=== PATIENT | female | born 1960 | race Caucasian/White ===

== ENCOUNTER 2017-12-16 13:35 | Emergency (ER) | payer OTHER ==
[~2017-12-16] VITALS: Ht 175.3 cm; Wt 108.9 kg
[~2017-12-16 13:35] MED LIST: CYCLOBENZAPRINE5 M2 PO; PERCOCET 5-3251 EACH PO
--- NOTE | 2017-12-16 14:25 | ED GENERAL ADULT ---
History of Present Illness General Chief Complaint: General Adult Stated Complaint: SENT BY URGENT CARE FOR PNEUMONIA/HIGH BLOOD PRESS Source: patient Exam Limitations: no limitations Vital Signs & Intake/Output Vital Signs & Intake/Output Vital Signs Date Time Temp Pulse Resp B/P B/P Pulse O2 O2 Flow FiO2 Mean Ox Delivery Rate 12/16 1758 98.3 12/16 1730 98.3 75 18 173/85 97 Room Air 12/16 1431 98 Room Air 12/16 1413 88 18 168/100 98 Room Air 12/16 1344 98.1 97 18 190/89 97 Room Air ED Intake and Output 12/17 0000 12/16 1200 Intake Total Output Total Balance Patient 240 lb Weight Weight Reported by Patient Measurement Method Allergies Coded Allergies: No Known Allergies (08/12/16) Reconcile Medications Amoxicillin 875 MG TABLET 1 TAB PO BID PNA Cyclobenzaprine HCl 5 MG TABLET 1 TAB PO TIDPRN PRN PAIN Oxycodone HCl/Acetaminophen (Percocet 5-325 MG Tablet) 5 MG-325 MG TABLET 1 TAB PO TID PRN PAIN Triage Note: PT WAS EVALUATED AT A CLINIC IN [place] AND SHE WAS TOLD TO HAVE PNEUMONIA. SHE REPORTS LEFT FLANK PAIN WITH NO UROLOGICAL SYMPTOMS. Triage Nurses Notes Reviewed? yes Onset: Gradual Duration: week(s): (1), changing over time, continues in ED Timing: single episode today Injury Environment: home Severity: mild, moderate Severity Numbers: 7 No Modifying Factors: none Associated Symptoms: cough LMP (ages 10-50): unknown : No Patient currently breastfeeds: No HPI: 57-year-old female past medical history of hypertension and diabetes evaluation of elevated blood pressure of pneumonia. Patient states that for the past 1-2 weeks that a gradually worsening cough. The cough is productive of yellow sputum she has had some subjective fevers and some left-sided rib tenderness. The tenderness is only present with coughing. She denies shortness of breath dizziness lightheadedness hemoptysis or lower extremity edema. No history of underlying lung disease such as asthma or COPD she does not smoke. No nausea vomiting or diarrhea. She went to an urgent care today where she was diagnosed with a left lower lobe pneumonia started on Zithromax and was sent to the ER for further evaluation. She states that she was sent in because her blood pressure was elevated. She takes valsartan 320 mg and she has been compliant. Last dose was today. No headaches changes in vision no blood thinners. She states her blood pressures usually controlled. Past History Travel History Traveled to [place] past 21 day No Medical History Any Pertinent Medical History? see below for history Cardiovascular: hypertension Endocrine: diabetes Surgical History Surgical History: none Psychosocial History What is your primary language Eritrean Tobacco Use: Never used Family History Hx Contributory? No Review of Systems Review of Systems Constitutional: Reports: chills, diaphoresis. EENTM: Reports: nasal congestion. Respiratory: Reports: see HPI, cough, sputum production. Cardiovascular: Reports: no symptoms. GI: Reports: no symptoms. Genitourinary: Reports: no symptoms. Musculoskeletal: Reports: no symptoms. Skin: Reports: no symptoms. Neurological/Psychological: Reports: no symptoms. Hematologic/Endocrine: Reports: no symptoms. Immunologic/Allergic: Reports: no symptoms. All Other Systems: Reviewed and Negative Physical Exam Physical Exam General Appearance: well developed/nourished, no apparent distress, alert, awake Head: atraumatic, normal appearance Eyes: Bilateral: normal appearance, PERRL, EOMI. Ears, Nose, Throat: normal pharynx, normal ENT inspection, hearing grossly normal Neck: normal inspection, supple, full range of motion Respiratory: normal breath sounds, no respiratory distress, lungs clear, LEFT LATERAL RIB TENDERNESS TO PALPATION NO BRUISING SWELLING OR ABRASIONS Cardiovascular: regular rate/rhythm, normal peripheral pulses Peripheral Pulses: 2+ radial (R), 2+ radial (L) Gastrointestinal: soft, non-tender Back: normal inspection, normal range of motion, no vertebral tenderness Extremities: normal inspection, normal range of motion, no edema Neurologic/Psych: no motor/sensory deficits, awake, alert, oriented x 3, normal gait Skin: intact, normal color, warm/dry Lymphatic: no anterior cervical jono Core Measures ACS in differential dx? No CVA/TIA Diagnosis: No Sepsis Present: No Sepsis Focused Exam Completed? No Progress Differential Diagnoses I considered the following diagnoses in my evaluation of the patient: [Pneumonia , acute bronchitis, COPD exacerbation, asthma exacerbation, PE, acute coronary syndrome, influenza, hypertensive urgency, hypertensive emergency, aortic dissection] Plan of Care: Orders Procedure Date/time Status TROPONIN LEVEL 12/16 140 Complete LACTIC ACID 12/16 1409 Complete COMPREHENSIVE METABOLIC PANEL 12/16 140 Complete CBC WITHOUT DIFFERENTIAL 12/16 1409 Complete EKG 12/16 1408 Active Laboratory Tests 12/16/17 1709: Lactic Acid Cancelled 12/16/17 1428: Anion Gap 13, Estimated GFR > 60, BUN/Creatinine Ratio 18.6, Glucose 120 H, Lactic Acid 1.6, Calcium 8.9, Total Bilirubin 1.2, AST 29, ALT 33, Alkaline Phosphatase 42, Troponin I < 0.01, Total Protein 7.1, Albumin 4.1, Globulin 3.0, Albumin/Globulin Ratio 1.4, CBC w Diff NO MAN DIFF REQ, RBC 4.64, MCV 84.9, MCH 28.5, MCHC 33.6, RDW 14.6 H, MPV 7.7, Gran % 60.6, Lymphocytes % 27.8, Monocytes % 7.5, Eosinophils % 3.7, Basophils % 0.4, Absolute Granulocytes 4.9, Absolute Lymphocytes 2.2, Absolute Monocytes 0.6, Absolute Eosinophils 0.3, Absolute Basophils 0 12/16/17 1409: Urine Color Cancelled, Urine Clarity Cancelled, Urine pH Cancelled, Ur Specific [place] Cancelled, Urine Protein Cancelled, Urine Ketones Cancelled, Urine Nitrite Cancelled, Urine Bilirubin Cancelled, Urine Urobilinogen Cancelled, Ur Leukocyte Esterase Cancelled, Ur Microscopic Cancelled, Urine Hemoglobin Cancelled, Urine Glucose Cancelled Patient seen and evaluated. She was diagnosed with a pneumonia today and was sent to the ER for further evaluation of elevated blood pressure. On initial evaluation her blood pressure is 190s over 80s. She has no chest pain or shortness of breath no headaches. We'll check basic labs EKG and a CTA of the chest, pelvis to rule out aortic dissection and confirm pneumonia. Patient declines any pain medication at this time. All blood work is within normal limits. CTA of the chest and pelvis is negative for aortic dissection. The does appear to be bilateral infiltrates and small pleural effusions. No signs of hypoxia. Patient was intubated in the emergency department and maintain oxygen saturation above 95%. No tachypnea. No underlying lung disease. PSI class II. Outpatient treatment reasonable. Patient did not desaturate after ambulating. No shortness of breath she is afebrile no white count no signs of cyanosis or hypoxia. Advised patient to continue taking Zithromax as directed. We'll also add amoxicillin for coverage of strep pneumo. She has a pro-air inhaler and codeine cough suppressant at home and advised her to continue using these as well. Make a follow-up appointment with the primary care doctor for recheck this week discussed return precautions in detail. Patient agrees the plan. Repeat blood pressure is 170s over 80s patient was struck to DVT taking her blood pressure medicine as directed and follow-up with her primary care doctor for recheck. Diagnostic Imaging: Viewed by Me: CT Scan. Discussed w/RAD: CT Scan. Radiology Impression: PATIENT: LINNETTEDecember PRESENT AGE: 57 PATIENT ACCOUNT NO: [id number] : 58 LOCATION: [facility] ([place]) ORDERING PHYSICIAN: Nahun MANJARREZ SERVICE DATE: 12/16/17 EXAM TYPE: CAT - CT ABD & PELVIS ANGIOGRAM; CTA CHEST-AORTIC DISSECTION EXAMINATION: CT ANGIOGRAM CHEST ABDOMEN AND PELVIS CLINICAL INFORMATION: Epigastric pain. COMPARISON: None. TECHNIQUE: Multiple axial images were obtained through the chest abdomen and pelvis following the administration of 100 mL of Optiray 320 intravenous contrast. Images were reviewed on a dedicated 3-D workstation. DLP: 1598.86 mGy-cm. CARDIOVASCULAR: The cardiac size is normal. No pericardial effusion. Atherosclerotic calcifications of the left anterior descending coronary artery noted. Normal diameter of the thoracic and abdominal aorta. No evidence of dissection or intramural hematoma. The pulmonary arteries are normal in diameter. No filling defect within the main, left, right pulmonary arteries to the level of second segmental branches to suggest pulmonary embolus. The abdominal branches of the aorta are normal in diameter. Bilateral common iliac arteries, external and internal iliac arteries are unremarkable. LUNGS: Presence of breathing artifact somehow limits evaluation. Diffuse bilateral reticular nodular interstitial opacities with predominant subpleural distribution noted. There are also groundglass and multiple solid pulmonary nodules. For example a 0.6 cm pulmonary nodule in the posterior lateral right lower lobe as seen on axial image 337 from series 4, 0.6 cm pulmonary nodule in the left lower lobe as seen on axial image 308. There is a 1.3 cm pleural-based nodular density/ consolidation in the lateral left lower lobe as seen on axial image 273/[id number]. There are pulmonary consolidations in the dependent part of the bilateral lower lobes and adjacent to the bilateral pleural effusions. These consolidations could represent atelectatic pulmonary parenchyma as the result of adjacent pleural effusion. Moderate right-sided and small left-sided pleural effusions are present. No pneumothorax. MEDIASTINUM: The trachea and karma are patent. There is a 1.3 x 3.0 cm subcarinal lymph node, better seen on coronal image 59. Prominent right paratracheal lymph node which measured about 1.3 x 0.8 cm is also seen. No axillary or hilar adenopathy. No supraclavicular adenopathy. ABDOMEN PELVIS: There is mild hepatomegaly. The liver measures about 20 cm in maximum CC dimension. No abnormal enhancing hepatic lesion. No intrahepatic biliary ductal dilatation. Prior cholecystectomy. The spleen, pancreas and adrenal glands are unremarkable. The kidneys are normal in size. Normal renal cortical enhancement. No hydronephrosis. A 2.9 cm simple cortical cyst is seen in the lower pole of left kidney. The ureters are not dilated. The urinary bladder is partially full and unremarkable. The small bowel loops and colon are not dilated and are unremarkable based on CT appearance. The appendix is not clearly seen, however there are no inflammatory changes in the expected position of the appendix to suggest acute appendicitis. The stomach and duodenum are unremarkable. No mesenteric or retroperitoneal or pelvic adenopathy. No free air or fluid in the abdomen or pelvis. The uterus and adnexa are unremarkable. The visualized bones are unremarkable without aggressive bony lesion or acute bone fracture. IMPRESSION: Normal diameter of the thoracic and abdominal aorta without evidence of aneurysm or dissection. No pulmonary embolism. Moderate right-sided and small left-sided pleural effusions and adjacent pulmonary opacities which could represent atelectatic changes. There are bilateral pulmonary interstitial reticulonodular opacities in addition to multiple bilateral solid and groundglass pulmonary nodules. Evaluation is somehow limited due to presence of breathing artifacts. These opacities could be infectious in etiology and represent interstitial pneumonia. Clinical correlation is suggested. Presence of multiple bilateral pulmonary nodules also warrants follow -up evaluation by short-term CT scan. Mild mediastinal adenopathy could be infectious as well. Hepatomegaly. No acute intra-abdominal finding. 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 Initial ED EKG: normal sinus rhythm, PAIRED PVCS, NONSPECIFIC T WAVE ABN ANT-LAT LEADS Prior EKG: unchanged Departure Departure Disposition: HOME OR SELF CARE Condition: Stable Clinical Impression Primary Impression: Pneumonia Qualifiers: Pneumonia type: due to unspecified organism Laterality: unspecified laterality Lung location: unspecified part of lung Qualified Code: J18.9 - Pneumonia, unspecified organism Referrals: Renetta Macdonald MD (PCP/Family) Additional Instructions: Into the Zithromax as directed for the full course. Also take amoxicillin as directed. Tylenol and ibuprofen as needed for pain. Continue to use pro-air inhaler and cough medicine as needed. Make a follow-up with her primary care doctor this week for recheck. Monitor symptoms closely return with any concerns. Departure Forms: Customer Survey General Discharge Information Prescriptions: Current Visit Scripts Amoxicillin 1 TAB PO BID #20 TAB Critical Care Note Critical Care Note Critical Care Time: non-applicable
[2017-12-16 14:40] LABS: ABSOLUTE BASOPHIL COUNT 0 /CUMM (0.0-0.2); ABSOLUTE EOSINOPHIL COUNT 0.3 /CUMM (0.0-0.7); ABSOLUTE GRANULOCYTE CT 4.9 /CUMM (1.4-6.5); ABSOLUTE LYMPH COUNT 2.2 /CUMM (1.2-3.4); ABSOLUTE MONOCYTE COUNT 0.6 /CUMM (0.10-0.60); BASOPHIL % 0.4 % (0.0-2.0); EOSINOPHIL % 3.7 % (0-5); GRANULOCYTE % 60.6 % (42.2-75.2); HEMATOCRIT 39.4 % (37-47); MEAN CORPUSCULAR HGB 28.5 PG (27.0-31.0); MEAN CORPUSCULAR HGB CONC 33.6 G/DL (33.0-37.0); MEAN CORPUSCULAR VOLUME 84.9 FL (81.0-99.0); MEAN PLATELET VOLUME 7.7 FL (7.4-10.4); PLATELET COUNT 282 /CUMM (130-400); RBC DISTRIBUTION WIDTH 14.6 % (11.5-14.5); RED BLOOD CELL CT 4.64 /CUMM (4.20-5.40)
--- NOTE | 2017-12-16 17:14 | CT SCAN REPORT ---
EXAMINATION: CT ANGIOGRAM CHEST ABDOMEN AND PELVIS CLINICAL INFORMATION: Epigastric pain. COMPARISON: None. TECHNIQUE: Multiple axial images were obtained through the chest abdomen and pelvis following the administration of 100 mL of Optiray 320 intravenous contrast. Images were reviewed on a dedicated 3-D workstation. DLP: 1598.86 mGy-cm. CARDIOVASCULAR: The cardiac size is normal. No pericardial effusion. Atherosclerotic calcifications of the left anterior descending coronary artery noted. Normal diameter of the thoracic and abdominal aorta. No evidence of dissection or intramural hematoma. The pulmonary arteries are normal in diameter. No filling defect within the main, left, right pulmonary arteries to the level of second segmental branches to suggest pulmonary embolus. The abdominal branches of the aorta are normal in diameter. Bilateral common iliac arteries, external and internal iliac arteries are unremarkable. LUNGS: Presence of breathing artifact somehow limits evaluation. Diffuse bilateral reticular nodular interstitial opacities with predominant subpleural distribution noted. There are also groundglass and multiple solid pulmonary nodules. For example a 0.6 cm pulmonary nodule in the posterior lateral right lower lobe as seen on axial image 337 from series 4, 0.6 cm pulmonary nodule in the left lower lobe as seen on axial image 308. There is a 1.3 cm pleural-based nodular density/consolidation in the lateral left lower lobe as seen on axial image 273/984. There are pulmonary consolidations in the dependent part of the bilateral lower lobes and adjacent to the bilateral pleural effusions. These consolidations could represent atelectatic pulmonary parenchyma as the result of adjacent pleural effusion. Moderate right-sided and small left-sided pleural effusions are present. No pneumothorax. MEDIASTINUM: The trachea and karma are patent. There is a 1.3 x 3.0 cm subcarinal lymph node, better seen on coronal image 59. Prominent right paratracheal lymph node which measured about 1.3 x 0.8 cm is also seen. No axillary or hilar adenopathy. No supraclavicular adenopathy. ABDOMEN PELVIS: There is mild hepatomegaly. The liver measures about 20 cm in maximum CC dimension. No abnormal enhancing hepatic lesion. No intrahepatic biliary ductal dilatation. Prior cholecystectomy. The spleen, pancreas and adrenal glands are unremarkable. The kidneys are normal in size. Normal renal cortical enhancement. No hydronephrosis. A 2.9 cm simple cortical cyst is seen in the lower pole of left kidney. The ureters are not dilated. The urinary bladder is partially full and unremarkable. The small bowel loops and colon are not dilated and are unremarkable based on CT appearance. The appendix is not clearly seen, however there are no inflammatory changes in the expected position of the appendix to suggest acute appendicitis. The stomach and duodenum are unremarkable. No mesenteric or retroperitoneal or pelvic adenopathy. No free air or fluid in the abdomen or pelvis. The uterus and adnexa are unremarkable. The visualized bones are unremarkable without aggressive bony lesion or acute bone fracture. IMPRESSION: Normal diameter of the thoracic and abdominal aorta without evidence of aneurysm or dissection. No pulmonary embolism. Moderate right-sided and small left-sided pleural effusions and adjacent pulmonary opacities which could represent atelectatic changes. There are bilateral pulmonary interstitial reticulonodular opacities in addition to multiple bilateral solid and groundglass pulmonary nodules. Evaluation is somehow limited due to presence of breathing artifacts. These opacities could be infectious in etiology and represent interstitial pneumonia. Clinical correlation is suggested. Presence of multiple bilateral pulmonary nodules also warrants follow-up evaluation by short-term CT scan. Mild mediastinal adenopathy could be infectious as well. Hepatomegaly. No acute intra-abdominal finding.
[2017-12-16 17:30] VITALS: BP 173/85
[2017-12-16] MEDS ORDERED: AMOXICILLIN875 M1 PO (17:45)
== END 2017-12-16 18:23 ==
LOC: ERH 13:35
PROVIDERS: Physician Assistant Medical
DX: J18.9 Pneumonia, unspecified organism (principal)
CPT/HCPCS: 74174; 93005; 93010; 96374; J0131